=== PATIENT | male | born 1945 | race Caucasian/White ===

== ENCOUNTER → 2016-12-30 | Outpatient (CLI) | payer MEDICARE, OTHER ==
--- NOTE | 2016-12-31 02:26 | US ---
Procedure: US CAROTID DOPPLER BILATERAL Exam Date: 12/30/2016 Ordering Provider: PONCHO CLARKE Clinical Indication: Other specified symptoms and signs involving the circulatory and Comparison: None TECHNIQUE : Real-time cerebrovascular ultrasonography was obtained from sternal notch to the angle of the mandible bilaterally utilizing clement scale, color flow and spectral Doppler analysis. Systolic velocity ratios were calculated for internal carotid artery to common carotid artery bilaterally. FINDINGS: RIGHT CAROTID BIFURCATION: Mild atherosclerotic plaque. Peak systolic and end-diastolic velocities in the right internal carotid artery are 75 and 16 cm/s. Internal carotid/common carotid ratio is 0.9. Right vertebral flow is antegrade. LEFT CAROTID BIFURCATION: Mild atherosclerotic plaque. Peak systolic and end-diastolic velocities in the left internal carotid artery are 139 and 17 cm/s. Internal carotid/common carotid ratio is 1.5. Left vertebral flow is antegrade. IMPRESSION: 1. Mild atherosclerotic plaque in each carotid bulb and ICA origin. 2. There is no significant stenosis (less than 50%) at either ICA origin. 3. Bilateral antegrade vertebral artery flow. Electronically signed by: Roland Parker MD 12/31/2016 2:25 AM CDT
== END | disposition home or self-care (01) ==
LOC: US 11:19
PROVIDERS: ATTEND Internal Medicine Interventional Cardiology
DX: R09.89 Other specified symptoms and signs involving the circulatory and respiratory systems (principal)